=== PATIENT | male | born 1970 | race Caucasian/White ===

== ENCOUNTER 2024-06-05 06:41 | Day surgery (SDC) | payer OTHER, SELFPAY ==
[2024-06-02 08:54] LABS: Hematocrit 39.2 % (39.0-52.0); Hemoglobin 13.1 g/dL (13.0-18.0); Mean Corp Hgb Conc. 33.4 g/dL (33.0-37.0); Mean Corpuscular Hgb 31.9 pg (27.0-31.0); Mean Corpuscular Volume 95.4 fL (80.0-94.0); Mean Platelet Volume 9.8 fL (7.4-10.4); Platelet Count 340 10^3/uL (130-400); Red Blood Cell Count 4.11 10^6/uL (4.70-6.10); Red Cell Dist. Width 14.5 % (11.5-14.5); White Blood Cell Count 6.8 10^3/uL (4.8-10.8)
[2024-06-02 09:29] LABS: APTT 23.5 Sec (23.4-35.0); INR 0.98; PT 12.8 Sec (11.4-14.6)
[2024-06-02 09:36] LABS: ALT (SGPT) 60 U/L (0-50); AST (SGOT) 34 U/L (17-59); Albumin 3.9 g/dl (3.5-5.0); Alkaline Phosphatase 224 U/L (38-126); Blood Urea Nitrogen 16 mg/dl (9-20); Calcium 11.2 mg/dl (8.4-10.2); Carbon Dioxide 26 mmol/L (22-30); Chloride 105 mmol/L (98-107); Glucose 89 mg/dl (70-99); Potassium 4.6 mmol/L (3.5-5.1); Sodium 133 mmol/L (135-145); Total Bilirubin 0.6 mg/dl (0.2-1.3); Total Protein 6.1 g/dl (6.3-8.2); eGFR > 60.00
[2024-06-02 09:57] LABS: % Eosinophils 2.1 % (0-6); % Immature Granulocytes 7.4 % (0-0.5); % Lymphocytes 14.3 % (20.5-51.1); % Monocytes 18.6 % (1.7-9.3); % Neutrophils 56.6 % (42.2-75.2); Absolute Basophils 0.1 10^3/uL (0-0.2); Absolute Eosinophils 0.1 10^3/uL (0-0.7); Absolute Immature Granulocytes 0.5 10^3/uL (0-0.05); Absolute Monocytes 1.3 10^3/uL (0.1-0.6); Absolute Neutrophils 3.8 10^3/uL (1.4-6.5); Nucleated Red Blood Cells % 0 % (-)
--- NOTE | 2024-06-04 13:39 | PTCARENOTE ---
Patients 05/24 ECG abnormal- reviewed by Dr. Mcfarland- no additional interventions required
[2024-06-05] VITALS (8 sets, daily range): BP systolic 128–160; BP diastolic 85–97; BMI 26.8
[2024-06-05] MEDS: TYLENOL 1000 MG PO (11:38)
[2024-06-05] MEDS: NEURONTIN 300 MG PO (11:38)
[2024-06-05] MEDS: NORMOSOL-R 1000 IV (11:39)
[2024-06-05] MEDS: HEPARIN 5000 UNITS SC (11:39)
[2024-06-05 12:53] LABS: Turbo PTH 512.1 pg/ml (13.6-85.8)
--- NOTE | 2024-06-05 13:29 | W.IMMPOSTOP ---
Surgical Immed Post Op Note
-
Preoperative Diagnosis: �hyperparathyroidism - E210
Postoperative Diagnosis: Same
Surgeon: Pasquale Cordero M.D.
Operation: Neck exploration and resection of right superior and left inferior parathyroid adenomas
Anesthesia: GET
Estimated Blood Loss: 5 cc
Drains: None
Specimen: �Right superior and left inferior neck nodules, rule out parathyroid adenomas
Complications: �None
Procedure:
The patient was taken to the operating room and placed in the usual supine position. After adequate general endotracheal anesthesia was established, the patient's neck was extended, prepped, and draped in the typical sterile fashion. A 4 cm
transcervical incision was made two fingerbreadths above the sternal notch. The skin incision was made with the #15 blade, and this was taken through the skin into the subcutaneous tissue. The underlying platysma muscle was divided, and subplatysmal
flaps were created superiorly to the thyroid cartilage and inferiorly to the sternal notch. Strap muscles were identified and at the midline.
The attention was turned to the left side of the neck. The left thyroid lobe was mobilized medially. During this process, the left recurrent laryngeal nerve was identified and preserved throughout the surgery. The left lower neck nodule was
identified and noted to be enlarged, excised, and sent to the pathology department, which showed a hypercellular parathyroid gland. The intraoperative PTH failed to normalize.
Next, the right side of the neck was explored. The right thyroid lobe was mobilized medially. During this process, the right recurrent laryngeal nerve was identified and preserved throughout the surgery. The right upper neck nodule was identified
and noted to be enlarged, excised, and sent to the pathology department, which showed a hypercellular parathyroid gland. The intraoperative PTH failed to normalize. The normal appearing right inferior parathyroid gland was identified and preserved.
After obtaining adequate hemostasis, the strap muscles were reapproximated with #3-0 Vicryl in a running fashion. The platysma muscle was reapproximated with #3-0 Vicryl in an interrupted fashion, and the skin was approximated with #4-0 Monocryl in
a running subcuticular fashion. The Steri-Strips and sterile dressings were placed. The patient tolerated the procedure well. The final instrument, needle, and sponge counts were correct. The patient was extubated and transferred to the PACU.
[2024-06-05 13:41] LABS: Turbo PTH 131.9 pg/ml (13.6-85.8)
[2024-06-05 14:25] LABS: Turbo PTH 52.9 pg/ml (13.6-85.8)
[2024-06-05 14:42] LABS: Turbo PTH 36.4 pg/ml (13.6-85.8)
== END 2024-06-05 16:29 | disposition home or self-care (01) ==
LOC: SDS 06:41
PROVIDERS: ATTENDING PHYSICIAN Surgery
DX: E21.0 Primary hyperparathyroidism (principal); D35.1 Benign neoplasm of parathyroid gland
CPT/HCPCS: 60500; 88305; 88332; 36415; 80053; 83970; 85025; 85610; 85730; 88331; 93005